=== PATIENT | female | born 2000 | race Caucasian/White ===

== ENCOUNTER → 2022-02-14 | Outpatient (CLI) | payer MEDICAID ==
--- NOTE | 2022-02-14 16:07 | Diagnostic Imaging Report ---
INDICATION: Twin . Supervision during normal . TECHNIQUE: Multiple real-time grayscale images were obtained over the gravid uterus. COMPARISON: None. FINDINGS: Imaging demonstrates what appears to be likely monochorionic monoamniotic . There is what appears to be a single placenta positioned posteriorly and no definitive septal membrane. No evidence for previa. Cervical length 5.6 cm. Normal amount of amniotic fluid, index at 12.24 cm. BABY A: BABY A is currently in a cephalic presentation. Visualized anatomical structures, including the bladder, stomach, four-chamber heart, three-vessel cord and cord insertion site as well as spine, appearing unremarkable. There is however perhaps a small choroid plexus cyst. Additionally, there is suggestion of perhaps mild hydronephrosis. Biometrical measurements are as follows: Biparietal 4.55 cm, age 19 weeks 6 days. Head circumference 17.53 cm, age 20 weeks 1 days. Abdominal circumference 14.99 cm, age 20 weeks 2 days. Femur length 3.00 cm, age 19 weeks 2 days. Sonographic estimate age: 20 weeks 0 days. Sonographic estimated date of delivery: 07/04/2022. Estimated Weight: 314 gm (+/- 46 gm). LMP percentile: 76%. heart rate: 161 beats per minute. BABY B: BABY B is currently in a breech presentation. Visualized anatomical structure, including the kidneys, bladder, stomach, intracranial structures, four-chamber heart, three-vessel cord and insertion site and spine, appearing unremarkable. There is perhaps mild hydronephrosis. Biometrical measurements are as follows: Biparietal diameter 4.55 cm, age 19 weeks 6 days . Head circumference 17.71 cm, age 20 weeks 2 days . Abdominal circumference 14.24 cm, age 19 weeks 5 days . Femur length 3.12 cm, age 19 weeks 5 days . Sonographic estimated age: 20 weeks 0 days. Sonographic estimated date of delivery: 07/04/2022. heart rate: 150 BPM Estimated Weight: 307 gm (+/- 45 gm) LMP Percentile: 70% IMPRESSION: 1. Twin intrauterine , likely monochorionic monoamniotic patency. There is currently fairly symmetric growth parameters and estimated age of approximately 20 weeks 0 days for an estimated date of delivery 07/04/2022. 2. Questioned bilateral mild hydronephrosis of both fetuses and potentially choroid plexus cyst of a single fetus. Dictated by: Dictated on workstation # [id number]
== END ==
LOC: RAD 13:00
PROVIDERS: ATTEND Obstetrics & Gynecology
DX: O30.012 Twin pregnancy, monochorionic/monoamniotic, second trimester (principal); Z3A.20 20 weeks gestation of pregnancy
CPT/HCPCS: 76805; 76810